=== PATIENT | female | born 2000 | race Caucasian/White ===

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

== ENCOUNTER 2023-06-20 | Outpatient (REF) | payer MEDICAID, SELFPAY ==
[2023-06-22 14:59] LABS: C. trachomatis RNA TMA NOT DETECTED (NOT DETECTED); Candida glabrata RNA NOT DETECTED (NOT DETECTED); Candida species RNA NOT DETECTED (NOT DETECTED); N. gonorrhoeae RNA TMA NOT DETECTED (NOT DETECTED); Trichomonas vaginalis RNA NOT DETECTED (NOT DETECTED)
== END 2023-06-20 00:01 | disposition home or self-care (01) ==
LOC: HO.HHCLNP
PROVIDERS: Visit Provider Emergency Medicine
DX: N89.8 Other specified noninflammatory disorders of vagina (principal)
CPT/HCPCS: 36415; 81513; 87086; 87147; 87481; 87491; 87591; 87661

== ENCOUNTER 2023-11-12 18:57 | Outpatient (REF) | payer MEDICAID, SELFPAY ==
[2023-11-23 00:48] LABS: C. trachomatis RNA TMA NOT DETECTED (NOT DETECTED); N. gonorrhoeae RNA TMA NOT DETECTED (NOT DETECTED); Trichomonas (NAAT) NOT DETECTED (NOT DETECTED)
== END 2023-11-12 18:58 | disposition home or self-care (01) ==
LOC: HO.HHCLNP 18:57
PROVIDERS: Visit Provider Nurse Practitioner Family
DX: Z12.4 Encounter for screening for malignant neoplasm of cervix (principal)
CPT/HCPCS: 36415; 87491; 87591; 87661; 88142

== ENCOUNTER 2024-12-10 18:37 | Emergency (ER) | payer OTHER, SELFPAY ==
--- NOTE | ~2024-12-10 | US_ITS ---
CLINICAL HISTORY: RLQ pain, ? ov cyst torsion Transabdominal and transvaginal ultrasound of the pelvis with Doppler Comparison: None Findings: Anteverted uterus measures 6.6 cm in length. Endometrial thickness measures 7 mm with trace endometrial fluid, may be physiologic. Right ovary measures 2.7 x 2.5 x 2.3 cm. Left ovary measures 3.1 x 1.8 x 2 cm. Normal color and spectral Doppler analysis of both ovaries. Trace free pelvic fluid in the cul-de-sac, may be physiologic. IMPRESSION: No evidence of ovarian torsion. This document has been electronically signed by: Jonn Mena MD on 12/10/2024 23:16:09
--- NOTE | 2024-12-10 18:40 | ED_ITS ---
HPI - Abdominal Pain General Chief Complaint: Abdominal Pain Stated Complaint: abd cramping Time Seen by Provider: 12/10/24 22:13 History of Present Illness ED Provider: Fernando WAY narrative: The patient is a 24-year-old female who is generally in good health. She says that about 2 weeks ago she started to have lower abdominal crampiness that was quite uncomfortable. She was in the [place] when her symptoms began. She says that she went to an emergency room in the [facility] and was given medications which were not very helpful. She says that she started having her period about 5 days ago, after the onset of the original crampiness. She says that the cramping is is mostly on the right side of her lower abdomen in his worse than typical menstrual cramps. She denies vaginal discharge. She denies fever, sweats, chills. She says that she is on control pills. She says that she has a regular boyfriend and sexual partner. She last had sexual intercourse about 3 weeks ago. No dyspareunia. The patient has had no change in appetite. She has been eating normally or even more than usual. No nausea or vomiting. No change in bowel habits. Related Data Home Medications ?Medication ?Instructions ?Recorded ?Confirmed cetirizine 10 mg tablet (Zyrtec) 10 mg PO DAILY PRN 03/23/21 03/23/21 levonorgestrel-ethinyl estradiol 1 tab PO DAILY 03/23/21 03/23/21 0.1 mg-20 mcg tablet (Vienva) omeprazole 20 mg capsule,delayed 20 mg PO DAILY 03/23/21 03/23/21 release Previous Rx's ?Medication ?Instructions ?Recorded doxycycline monohydrate 100 mg 100 mg PO BID 14 days #28 caps 12/11/24 capsule ibuprofen 400 mg tablet 400 mg PO Q6H PRN pain #14 tabs 12/11/24 metronidazole 500 mg tablet 500 mg PO BID 2 weeks #28 tabs 12/11/24 Allergies Allergy/AdvReac Type Severity Reaction Status Date / Time No Known Allergies Allergy Verified 12/10/24 18:43 Review of Systems Review of Systems Yes all other systems are reviewed and are negative [facility] Family History Family History (Updated 03/23/21 @ 11:07 by Louise Kay) Mother HTN (hypertension) Social History Social History (Updated 03/23/21 @ 12:29 by Maribel Vinson PA-C) Household Members Other:: Lives at home with her family Alcohol intake: never Patient Tobacco Use Status: Never used Tobacco e-Cigarette/Vaping Use: Never Used Current occupation: [employer] Physical Exam ED Vital Signs: Vital Signs - 24 hr 12/10/24 18:41 12/10/24 22:27 12/11/24 01:52 Temperature 98.5 F 98.4 F 98.6 F Pulse Rate 73 81 82 Respiratory Rate 18 16 18 Blood Pressure 125/85 125/81 112/58 L Pulse Oximetry 100 99 98 Oxygen Delivery Method Room Air Room Air 12/11/24 01:52 Temperature 98.6 F Pulse Rate 82 Respiratory Rate 18 Blood Pressure 112/58 L Pulse Oximetry 98 Oxygen Delivery Method BMI result Body Mass Index 20.5 Const Other: The patient is a 24-year-old female who was awake, alert, pleasant, cooperative. She is well-groomed. She says that she is in a lot of discomfort but she looked entirely well and did not seem in obvious apparent discomfort. HENMT Other: Face is symmetrical. Mucous membranes moist. Eyes General: appearance normal, both eyes and all related structures Neck Neck: Yes normal visual inspection and Yes full ROM Resp Effort & Inspection: normal respiratory effort Auscultation: clear to auscultation bilaterally Cardio Rate: regular rate Rhythm: regular rhythm Heart sounds: S1 normal heart sound present and S2 normal heart sound present GI Other: The abdomen is flat and soft. She seemed to have tenderness across the very lower portion of the abdomen near the pelvis, moreso on the right lower abdomen. Other: the patient has normal external vaginal genitalia. With a speculum exam it was apparent there was some blood in the vaginal vault consistent with menses. There was no purulence. The patient had cervical motion tenderness and bilateral adnexal tenderness on bimanual exam. Skin Other: the skin is dry and unremarkable Neuro Other: the patient is awake, alert, pleasant, cooperative. Cranial nerves are grossly intact. She moves her extremities normally. She has a normal gait. Extrem Other: No peripheral edema Course Course Course Narrative: This is a Rapid Medical Exam performed in triage by Daphne Begum PA-C. Full HPI, ROS and PE to be performed by primary ED provider. 24 yo F presenting to the ED c/o lower abd pain/cramping x2 wks, intermittent w/radiation to back/RLE. Currently on menses. denies N/V/D, dysuria/hematuria, vag d/c PE: abdomen soft, +RUQ & RLQ/suprapubic ttp, no rebound or guarding Plan: labs, UA, Ur preg Medical Decision Making Medical Decision Making MDM Narrative: the patient is a 24-year-old female who presents for evaluation of 2 weeks of pelvic discomfort. She indicates that her discomfort is worse on the right side. She describes her discomfort as persistent crampiness. She has no associated gastrointestinal symptoms of significance. She says that she has had a normal appetite and has been eating a lot. Normal bowel movements. My suspicion therefore for something like appendicitis or other gastrointestinal process would be very low. The patient also denies vaginal discharge. She has been menstruating for about 3 or 4 days but the painful symptoms for which she is here for evaluation preceded the onset of menses by over a week. Clinically the patient does not look significantly ill in any way. I thought that perhaps the patient would have an ovarian cyst problem has a source of her symptoms. However an ultrasound of the pelvis was unremarkable. No findings of ovarian cyst or torsion. Her labs showed a white count of 6.3 with a differential that showed 46% neutrophils, 38% lymphocytes, and 12% monocytes. test is negative. She had some red cells in her urinalysis consistent With menses. LFTs are unremarkable, lipase is unremarkable, metabolic panel is unremarkable. CRP minimally elevated at 0.64. although the patient's history did not seem highly suggestive of PID I felt that given her unremarkable lab work and her negative ultrasound that I should perform a pelvic exam. I did not see an indication for a CT of the abdomen given her absence of any gastrointestinal symptoms and her unremarkable labs. The speculum portion of the pelvic exam may be affected by the presence of menstrual bleeding. However the bimanual exam revealed significant apparent tenderness with cervical motion and both adnexa ease. Based on this degree of tenderness I felt the patient should be treated for PID. The patient was therefore given IM ceftriaxone and prescriptions for 2 weeks of doxycycline and metronidazole. She should follow up with her PCP. Lab Data 12/10/24 19:04 12/10/24 19:04 Labs: Lab Results 12/10/24 Range/Units 19:04 WBC 6.3 (4.8-10.8) X10*3/uL RBC 3.83 L (4.20-5.50) X10*6/uL Hgb 11.1 L (12.0-16.0) g/dl Hct 32.6 L (37.0-47.0) % MCV 85.1 (80.0-98.0) fL MCH 29.0 (27.0-33.0) pg MCHC 34.0 (31.0-35.0) g/dl RDW 13.3 (11.0-16.0) % Plt Count 335 (160-400) X10*3/uL MPV 9.0 L (9.4-12.3) fL Immature Gran % (Auto) 0.2 (0.0-0.4) % Neut % (Auto) 46.6 (45-73) % Lymph % (Auto) 38.3 (20-40) % Grant % (Auto) 12.3 H (2-11) % Eos % (Auto) 2.1 (0-4) % Baso % (Auto) 0.5 (0-2) % Lymph # (Auto) 2.4 (1.2-4.9) X10*3/uL Grant # (Auto) 0.8 (0.1-1.2) X10*3/uL Eos # (Auto) 0.1 (0.0-0.4) X10*3/uL Baso # (Auto) 0.0 (0.0-0.2) X10*3/uL Abs Immat Gran (auto) 0.01 (0.00-0.03) X10*3/uL Absolute Neuts (auto) 2.9 (2.0-8.3) x10*3/uL Absolute Nucleated RBC 0.000 (0.0-0.012) X10*3/uL Nucleated RBC % (auto) 0.0 (0.0-0.2) /100WBC Smear Tech's Comments VERIFIED Sodium 138 (135-145) mmol/L Potassium 3.6 (3.3-5.1) mmol/L Chloride 106 (96-108) mmol/L Carbon Dioxide 25 (22-29) mmol/L Anion Gap 11 L (12-20) BUN 6 L (9-16) mg/dL Creatinine 0.72 (0.5-1.4) mg/dL Estim Creat Clear Calc 108.0 Estimated GFR > 60 Random Glucose 95 (60-115) mg/dL Calcium 9.3 (8.4-10.2) mg/dL Magnesium 2.0 (1.6-2.6) mg/dL Total Bilirubin 0.3 (0.0-1.0) mg/dL Direct Bilirubin 0.1 (0.0-0.5) mg/dL AST 24 (5-31) U/L ALT 18 (0-31) U/L Alkaline Phosphatase 58 (39-117) U/L C-Reactive Protein 0.64 H (< or = 0.50) mg/dL Total Protein 7.6 (6.5-8.0) g/dL Albumin 4.1 (3.5-5.0) g/dL Lipase 24 (8-78) U/L Urine Color Yellow Urine Appearance Clear Urine pH 6.0 (5.0-9.0) Ur Specific Midnight 1.010 (1.005-1.025) Urine Protein Negative (Neg-Trace) mg/dL Urine Glucose (UA) Negative (Negative) mg/dL Urine Ketones Negative (Negative) mg/dL Urine Blood Moderate (2+) H (Negative) Urine Nitrite Negative (Negative) Ur Leukocyte Esterase Negative (Negative) Urine RBC >20 H (0-2) /HPF Urine WBC 0-5 (0-5) /HPF Ur Squamous Epith Cells 0-2 (0-2) /HPF Urine Bacteria None Seen (None Seen) Hyaline Casts 0-2 (0-2) /LPF Urine Test NEGATIVE (NEGATIVE) Medications Administered Discontinued Medications Generic Name Dose Route Start Last Admin Trade Name Freq PRN Reason Stop Dose Admin Acetaminophen 975 mg 12/11/24 00:06 12/11/24 01:42 Acetaminophen 325 Mg Tablet PO 12/11/24 00:07 975 mg ONCE ONE Administration Ceftriaxone Sodium 500 mg 12/11/24 00:45 12/11/24 01:42 Ceftriaxone Sodium 500 Mg Vial IM 12/11/24 00:46 500 mg ONCE ONE Administration Doxycycline Monohydrate 100 mg 12/11/24 00:45 12/11/24 01:42 Doxycycline Monohydrate 100 Mg Capsule PO 12/11/24 00:46 100 mg ONCE ONE Administration Ketorolac Tromethamine 30 mg 12/10/24 23:26 12/10/24 23:54 Ketorolac Tromethamine 30 Mg/Ml Vial IM 12/10/24 23:27 30 mg ONCE ONE Administration Metronidazole 500 mg 12/11/24 00:45 12/11/24 01:42 Metronidazole 500 Mg Tablet PO 12/11/24 00:46 500 mg ONCE ONE Administration Discharge Plan Discharge Clinical Impression: Acute pelvic inflammatory disease Patient Disposition: Home, Self-Care Instructions: Pelvic Inflammatory Disease (ED) Additional Instructions: I think that you might have a condition called pelvic inflammatory disease. You were given an injection of the antibiotic ceftriaxone. You has been started on oral antibiotics, doxycycline and metronidazole. Please take both of these medications 2 times a day for the next 14 days. Please contact your regular doctor's office in the morning for a prompt follow up appointment for ongoing management and re-evaluation of your symptoms. you may use ibuprofen and [id number] acetaminophen as needed for pain. Return to the emergency room if you feel significantly worse. Prescriptions: New doxycycline monohydrate 100 mg capsule 100 mg PO BID 14 Days Qty: 28 0RF metronidazole 500 mg tablet 500 mg PO BID 14 Days Qty: 28 0RF ibuprofen 400 mg tablet 400 mg PO Q6H PRN (Reason: pain) Qty: 14 0RF No Action omeprazole 20 mg capsule,delayed release(DR/EC) 20 mg PO DAILY cetirizine [Zyrtec] 10 mg tablet 10 mg PO DAILY PRN levonorgestrel-ethinyl estrad [Vienva] 0.1-20 mg-mcg tablet 1 tab PO DAILY Referrals: [facility] [Provider Group] ( Possible PID) Interventions: ED Discharge Assessment Last Done: 12/11/24 01:52 Discharge Date/Time: 12/11/24 01:53 Print Language: Turkmen
[2024-12-10 18:41] VITALS: BP 125/85; PULSE 73; RESP 18; TEMP 36.9; O2SAT 100; BMI 20.5
[2024-12-10 19:09] LABS: Basophils Percent Auto 0.5 % (0-2); Eosinophils Absolute Auto 0.1 X10*3/uL (0.0-0.4); Eosinophils Percent Auto 2.1 % (0-4); Hematocrit 32.6 % (37.0-47.0); Hemoglobin 11.1 g/dl (12.0-16.0); Imm Gran Abs Auto 0.01 X10*3/uL (0.00-0.03); Imm Gran Pct Auto 0.2 % (0.0-0.4); Lymphocytes Absolute Auto 2.4 X10*3/uL (1.2-4.9); Lymphocytes Percent Auto 38.3 % (20-40); MANUAL DIFF FLAG SCAN; Mean Corpuscular Volume 85.1 fL (80.0-98.0); Monocytes Absolute Auto 0.8 X10*3/uL (0.1-1.2); Monocytes Percent Auto 12.3 % (2-11); Neutrophils Absolute Auto 2.9 x10*3/uL (2.0-8.3); Neutrophils Percent Auto 46.6 % (45-73); Platelet Count 335 X10*3/uL (160-400); Red Blood Count 3.83 X10*6/uL (4.20-5.50); Red Cell Distribution Width 13.3 % (11.0-16.0); SCAN SMEAR FLAG 1; White Blood Count 6.3 X10*3/uL (4.8-10.8)
[2024-12-10 19:13] LABS: UPreg QC Valid YES; Urine Pregnancy NEGATIVE (NEGATIVE)
[2024-12-10 19:21] LABS: Appearance Urine Clear; Color Urine Yellow; Glucose Urine UA Negative (Negative); Leukocyte Esterase Urine Negative (Negative); Nitrite Urine Negative (Negative); UMIC TRIGGER UACC YES; Urine Blood Moderate (2+) (Negative); Urine Ketones Negative (Negative); Urine Protein Negative (Neg-Trace)
[2024-12-10 19:26] LABS: Bacteria Urine None Seen (None Seen); Hyaline Casts Urine 0-2 /LPF (0-2); RBC Urine >20 /HPF (0-2); Squamous Epithelial Cell Urine 0-2 /HPF (0-2); WBC Urine 0-5 /HPF (0-5)
[2024-12-10 19:27] LABS: Alanine Aminotransferase 18 U/L (0-31); Albumin Level 4.1 g/dL (3.5-5.0); Alkaline Phosphatase 58 U/L (39-117); Anion Gap 11 (12-20); Aspartate Amino Transferase 24 U/L (5-31); Bilirubin Direct 0.1 mg/dL (0.0-0.5); Bilirubin Total 0.3 mg/dL (0.0-1.0); Blood Urea Nitrogen 6 mg/dL (9-16); Calcium 9.3 mg/dL (8.4-10.2); Carbon Dioxide 25 mmol/L (22-29); Chloride 106 mmol/L (96-108); Estimated Glomerular Filt Rate > 60; Glucose Random 95 mg/dL (60-115); Lipase 24 U/L (8-78); Potassium 3.6 mmol/L (3.3-5.1); SLIDE REVIEW VERIFIED; Sodium 138 mmol/L (135-145); Total Protein 7.6 g/dL (6.5-8.0)
[2024-12-10 22:27] VITALS: BP 125/81; PULSE 81; RESP 16; TEMP 36.9; O2SAT 99
[2024-12-10 22:39] LABS: C Reactive Protein 0.64 mg/dL (< or = 0.50)
[2024-12-10] MEDS: Ketorolac Tromethamine 30 MG/ML VIAL IM (23:54)
[2024-12-11] MEDS: metroNIDAZOLE 500 MG TABLET PO (01:42)
[2024-12-11] MEDS: Acetaminophen 325 MG TABLET 975 MG PO (01:42)
[2024-12-11] MEDS: Doxycycline Monohydrate 100 MG CAPSULE PO (01:42)
[2024-12-11] MEDS: cefTRIAXone sodium 500 MG VIAL IM (01:42)
[2024-12-11 01:52] VITALS: BP 112/58; PULSE 82; RESP 18; TEMP 37; O2SAT 98
[2024-12-11 05:23] LABS: CT PCR NOT DETECTED (Not Detect.); NG PCR NOT DETECTED (Not Detect.)
[2024-12-11 10:27] LABS: Bacterial Vaginosis PCR NEGATIVE (Negative); Candida Group PCR NOT DETECTED (Not Detect); Candida glab krusei PCR NOT DETECTED (Not Detect); Trichomonas vaginalis PCR NOT DETECTED (Not Detect)
== END 2024-12-11 01:53 | disposition home or self-care (01) ==
PROVIDERS: Physician Assistant; Emergency Provider Emergency Medicine
DX: N73.0 Acute parametritis and pelvic cellulitis (principal); R25.2 Cramp and spasm; R10.2 Pelvic and perineal pain; M54.50 Low back pain, unspecified; Z79.899 Other long term (current) drug therapy
CPT/HCPCS: 36415; 76830; 76856; 80048; 80076; 81001; 81025; 81515; 83690; 83735; 85025; 86140; 87491; 87591; 93975; 96372; 99284; J0696; J1885

== ENCOUNTER → 2024-12-10 22:22 | Outpatient (BNV) | payer OTHER, SELFPAY | PROVIDERS: Emergency Provider Emergency Medicine; Visit Provider Radiology Diagnostic Radiology | DX: R10.31 Right lower quadrant pain (principal) | CPT/HCPCS: 76830; 76856; 93975 ==

== ENCOUNTER 2024-12-30 16:09 | Outpatient (REF) | payer OTHER, SELFPAY ==
--- OUTSIDE RECORDS SUMMARY | 2024-12-30 16:11 | XMS_ITS | Clinical Summary ---
Author Organization [facility] Address [id number] [place] [id number] Care Team Providers Care Weigher Operator Name Role Phone Unavailable Primary Care Provider Unavailabl e Social History Tobacco Use Types Packs/Day Years Used Date Smoking Tobacco: Never Assessed Comments Unknown Sex and Gender Information Value Date Recorded Sex Assigned at Not on file Legal Sex Female 9:01 AM EST Gender Identity Not on file Sexual Orientation Not on file Plan of Treatment Health Maintenance Due Date Last Done Comments Gonorrhea/Chlamydia Screening 2002 HPV Vaccines (1 - 3-dose series) 2017 Meningococcal B Vaccine (1 o f 2 - Standard) 2018 DTaP,Tdap,and Td Vaccines (1 - Tdap) 2021 Hepatitis B Vaccines (1 of 3 - 19+ 3-dose series) 2021 Cervical Cancer Screening: P ap Smear 2023 COVID-19 Vaccine ( - 2023-2 5 season) 2024 Influenza Vaccine (Season Ended) 2025 HIB Vaccines Aged Out No longer eligi ble based on patient's age to complete this topic Hepatitis A Vaccines Aged Out No long er eligible based on patient's age to complete this topic IPV Vaccines Aged Out No longer eligi ble based on patient's age to complete this topic MMR Vaccines Aged Out No longer eligi ble based on patient's age to complete this topic Meningococcal ACWY Vaccine Aged Out N o longer eligible based on patient's age to complete this topic Pneumococcal Vaccine: Pediat rics (0 to 5 Years) and At-Risk Patients (6 to 64 Years) Aged Out No longer eligible b ased on patient's age to complete this topic RSV Immunization Patients Un brijesh 20 months Aged Out No longer eligible b ased on patient's age to complete this topic Varicella Vaccines Aged Out No longer eligible based on patient's age to complete this topic
== END 2024-12-30 16:10 | disposition home or self-care (01) ==
LOC: HO.HHCLNP 16:09
PROVIDERS: Visit Provider Advanced Practice Midwife
DX: R87.610 Atypical squamous cells of undetermined significance on cytologic smear of cervix (ASC-US) (principal)
CPT/HCPCS: 88175

== ENCOUNTER 2025-03-09 16:48 | Outpatient (REF) | payer OTHER, SELFPAY ==
--- OUTSIDE RECORDS SUMMARY | 2025-03-09 16:50 | XMS_ITS | Clinical Summary ---
Author Organization [facility] it Address [id number] [place] [id number] Care Team Providers Care Steel Turner Name Role Phone Unavailable Primary Care Provider [...] Screening: P ap Smear 2023 COVID-19 Vaccine (1 - 2023-2 5 season) 2024 Depression Screening 08/06/2024 Influenza Vaccine (#1) 2025 HIB Vaccines Aged Out No longer [...] 5 Years) and At-Risk Patients (6 to 49 Years) Aged Out No longer eligible b ased on patient's age to complete this topic RSV Immunization Patients Un brijesh 20 months Aged Out No longer eligible b ased on patient's age to complete this topic Varicella Vaccines Aged Out No longer eligible based on patient's age to complete this topic
--- OUTSIDE RECORDS SUMMARY | 2025-03-09 16:50 | XMS_ITS | Clinical Summary ---
Author Organization [employer] Address [address] [place] [address] Care Team Providers Care [employer] Libr[employer] Name Role Phone Nichelle Anderson NP Primary Care Provider [phone] Allergies No known active allergies Medications levonorgestrel -ethinyl estradiol (Levora 0.15/30, 28,) 0.15-30 MG-MCG tablet Take 1 tablet by mouth Once per day. 90 tablet 1 5 026 Active levonorgestrel -ethinyl estradiol (Levora 0.15/30, 28,) 0.15-30 MG-MCG tablet Take 1 tablet by mouth Once per day. 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 Called [facility] eye care, they did not advise emergency but gave patient a visit 12/06/2022 0900. Patient excepted visit. Vitamin D deficiency 11/30/2022 Kidney stone 11/30/2022 Irregular periods 10/08/2018 Encounters Date Type Department Care Team Description 03/09/2025 11:30 AM EDT Office Visit [facility] MEDICINE [address] [place] [address] Boone Bhandari CNM Surveillance of previously prescribed contraceptive pill (Primary Dx); Screening examination for venereal disease 03/09/2025 Travel 03/06/2025 Telephone [facility] [address] [place] [address] Hoda Jensen [place] 03/06/2025 Telephone [facility] [address] [place] [address] Boone Bhandari CNM Insurance 02/11/2025 10:30 AM EDT Office Visit [facility] OPTOMETRY [address] [place] [address] Isaak, Karina, OD White without pressure of peripheral retina of right eye (Primary Dx); Migraine without aura and without status migrainosus, not intractable; Myopia of both eyes 02/11/2025 Travel 01/06/2025 Results Follow-Up [address] [address] Boone Bhandari CNM Pap Smear 12/30/2024 10:00 AM EDT Office Visit [address] [address] Boone Bhandari CNM PID (pelvic inflammatory disease) (Primary Dx); Atypical squamous cells of undetermined significance (ASCUS) on Papanicolaou smear of cervix; Irregular periods 12/30/[address] [address] Boone Bhandari CNM Insurance 12/30/2024 Travel 12/26/[address] [address] Nichelle Anderson NP Chart Prep 12/25/2024 Travel 12/11/[address] [address] Nichelle Anderson NP ER Follow-up; Nurse Triage 12/11/2024 Telephone [facility] [address] [place] [address] Breann Vick RN Error (VOID this visit) 12/10/2024 6:20 PM EDT Office Visit [facility] [address] [place] [address] Name, MD Ant Abdominal pain in female patient (Primary Dx) 12/10/2024 Orders Only GENERIC EXTERNAL DATA DEPARTMENT Provider, Generic External Data from Last 3 Months Immunizations Immunization Administration Dates Next Due DTaP 05/18/2006, 3,2002,06/24,2002 HPV, Quadrivalent 12/01/2014,07/06/2014,06/01/20 14 Hep A, ped/adol, 2 dose 10/25/2015,10/21/2014 Hep B, Adolescent or Pediatric 2002,2001,2002 Hib ([facility]) 05/26/2003, 3,2002,06/24 INFLUENZA INJECTABLE QUADRIV ALANT CCIIV4 MDCK Multi-dose vial 07/04/2022 IPV 05/18/2006, 3,2002,04/06 Influenza Injectable Quadriv alant Preservative Free IIV4 MDCK 01/12/2022 Influenza injectable quadriv alent IIV4 with preservative 10/25/2015 Influenza injectable quadriv alent preservative free 05/09/2023,10/08/2018 Influenza live intranasal qu adrivalent LIAV4 06/01/2014 Influenza, IIV3, injectable 06/27/2010,1 ,07/05/2007,05/18 Influenza, Injectable, MDCK, preservative free 05/19/2024 MMR 05/18/2006,03/24/2003 MMRV 05/18/2006 Meningococcal MCV4P ACYW-135 10/08/2018,06/01/20 14 Pneumococcal Conjugate PCV 7 05/26/2003, 2002,2002,04/16 Tdap 06/01/2014 Varicella 03/24/2003 Family History Medical History Relation Name Comments Diabetes Other Hypertension Other Bipolar disorder Neg Hx Depression Neg Hx Relation Name Status Comments Other Social History Tobacco Use Types Packs/Day Years Used Date Smoking Tobacco: Never Smokeless Tobacco: Never Tobacco Cessation:Counseling Given: Not Answered Depression Answer Date Recorded Patient Health Questionnaire-9 Score 0 03/09/2025 Patient Health Questionnaire-9 Score 0 03/09/2025 Last PHQ-9: Questionnaire Data Not on file 0 03/09/2025 Housing Stability Answer Date Recorded What is your housing situation today? I have zaria major 03/09/[address] you li ve. Do you have problems with any of the following? None of the above 03/09/2025 Food Insecurity Answer Date Recorded Within the past 12 months, y ou worried that your food would run out before you got money to buy more: Never True 03/09/2025 Within the past 12 months,th e food you bought just didn't last and you didn't have enough money to get more: Never True 11/2024 Utilities Answer Date Recorded In the past 12 months, has t he electric, gas, oil or water company threatened to shut off services in your home? No 03/09/2025 Depression Answer Date Recorded Patient Health Questionnaire-2 Score 0 03/09/2025 Internet Access Answer Date Recorded Internet Access Q1 Yes 03/09/2025 Internet Access Q2 Not on file 03/09/2025 Comments No Intention Date Recorded No desire to become (finding) 0 03/09/2025 Sex and Gender Information Value Date Recorded Sex Assigned at Female 06/05/2022 10:17 AM EDT Legal Sex Female 10:17 AM EDT Gender Identity Female 06/05/2022 10:17 AM EDT Sexual Orientation Straight 06/05/2022 10 :17 AM EDT Last Filed Vital Signs Vital Sign Reading Time Taken Comments Blood Pressure 120/70 03/09/2025 11:48 AM EDT Pulse 82 03/09/2025 11:48 AM EDT Temperature 37.4 C (99.3 F) 03/09/2025 11:48 AM EDT Respiratory Rate 12 03/09/2025 11:48 AM EDT Oxygen Saturation 99% 03/09/2025 11:48 AM EDT Inhaled Oxygen Concentration - - Weight 55.9 kg (123 lb 3.2 oz) 03/09/2025 11:48 AM EDT Height 165.1 cm (5' 5 ) 12/10/2024 6:07 PM EDT Body Mass Index 20.5 12/10/2024 6:07 PM EDT Plan of Treatment Health Maintenance Due Date Last Done Comments SDOH Screening 2002 Meningococcal B Vaccine (1 of 2 - Standard) 2018 COVID-19 Vaccine (3 - season) 2024 01/21/2021, 12/30/2020 DTaP/Tdap/Td Vaccines (7 - Td or Tdap) 06/01/2024 06/01/2014, 05/18/2006, 05/26/2003, Additional history exists HPV/Cotest 11/11/2024 Influenza Vaccine (#1) 2025 , 05/09/2023, 07/04/2022, Additional history exists Disability Screening 12/10/2025 12/10/2024 Chlamydia and Gonorrhea Screening 12/11/2025 12/11/2024, 11/12/2023, 06/20/2023, Additional history exists Pap Smear 12/30/2025 12/30/2024, 03/2024, 11/12/2023 Alcohol/Substance Use Screening 03/09/2026 03/09/2025 Depression Screening 03/09/2026 03/09/2025, 03/09/20 Family Planning (PISQ) 03/09/2026 03/09/2025 Tobacco Screening 03/09/2026 03/09/2025 Zoster Vaccines (1 of 2) 02/18/2052 RSV Patients and Patients Aged 60 years or older (1 - 1-dose 75+ series) 2077 Hepatitis B Vaccines Completed 2002, 2002, 2002 HIB Vaccines Completed 05/26/2003, 11/05, 2002, Additional history exists Pneumococcal Vaccine: Pediatrics (0 to 5 Years) and At-Risk Patients (6 to 49) Years Aged Out 05/26/2003, 2002, 2002, Additional history exists No longer eligible based on patient's age to complete this topic IPV Vaccines Completed 05/18/2006, 11/05, 2002, Additional history exists HPV Vaccines Completed 12/01/2014, 12/0 08/2013, 06/01/2014 Hepatitis A Vaccines Completed 10/25/2015, 10/22/19 15 Meningococcal Vaccine Completed 10/08/2018, 014 HIV Screening Completed 12/14/2020 Hepatitis C Screening Completed 12/14/2020 RSV under 20 months Aged Out No longe r eligible based on patient's age to complete this topic Rotavirus Vaccines Aged Out No longer eligible based on patient's age to complete this topic Procedures Procedure Name Priority Date/Time Associated Diagnosis Comments PAP SMEAR Routine 12/30/2024 10:58 AM EDT Atypical squamous cells of undetermined significance (ASCUS) on Papanicolaou smear of cervix BACTERIAL VAGINOSIS PANEL Routine 12/11/2024 12:45 AM EDT CHLAMYDIA/N. GONORRHOEAE RNA, TMA, UROGENITAL Routine 12/11/2024 12:45 AM EDT WET PREP, GENITAL Routine 12/11/2024 12: 45 AM EDT US PELVIS TRANSVAGINAL Routine 12/10/2024 11:16 PM EDT US PELVIC OVARIAN DOPPLER Routine 12/10/2024 11:16 PM EDT C-REACTIVE PROTEIN Routine 12/10/2024 7: 04 PM EDT URINALYSIS, COMPLETE, WITH REFLEX TO CULTURE Routine 12/10/2024 7:04 PM EDT LIPASE Routine 12/10/2024 7:04 PM EDT MAGNESIUM Routine 12/10/2024 7:04 PM EDT BASIC METABOLIC PANEL Routine 12/10/2024 7:04 PM EDT HEPATIC FUNCTION PANEL Routine 12/10/2024 7:04 PM EDT SLIDE REVIEW Routine 12/10/2024 7:04 PM EDT CBC WITH AUTO DIFFERENTIAL Routine 12/10/2024 7:04 PM EDT URINALYSIS WITH REFLEX MICROSCOPIC Routine 12/10/2024 7:04 PM EDT HCG, QL, URINE Routine 12/10/2024 7:04 PM EDT POCT , URINE Routine 12/10/2024 6:26 PM EDT Abdominal pain in female patient POCT URINALYSIS DIPSTICK Routine 12/10/2024 6:25 PM EDT Abdominal pain in female patient ZZZ HISTORICAL HEPATITIS C AB W/REFL TO HCV RNA, QN, PCR Routine 12/14/2020 2:28 PM EDT HIV 1/2 ANTIGEN/ANTIBODY, FOURTH GENERATION W/RFL Routine 12/14/2020 2:28 PM EDT from Last 3 Months or Most Recently Relevant to Health Maintenance Results * Pap Smear (12/30/2024 10:58 AM EDT) Swab Cervix uteri structure / Unknown 12/30/2024 10:58 AM EDT 12/31/2024 9:00 AM EDT [facility] - 01/06/2025 3:13 PM EDT ----- ------- Name: Dahiana Alvarado Age/Sex: 24/F : 2000 Unit#: [id number] Attend Dr: BOONE BHANDARI CNM Re12/30/[address] [facility] REF Location: [facility] Disch: ----- ------- SPEC : [id number] RECD: 12/31/24-899 STATUS: MARTINEZ PARRY NUM: [id number] OTF: 12/30/24-[address]: BOONE BHANDARI CNM ENTERED: 12/31/24 SP TYPE: Pap Smr OTHR DR: ORDERED: Pap Smear, PAP path review Interpretation Satisfactory for evaluation. Negative for intraepithelial lesion or malignancy. Reactive cellular changes. Clinical Information LMP: Unknown date Previous PAP test: 11/2023, ASCUS Material Received ThinPrep-Cervical PAP Disclaimer As of May 28, 2024, the technical services to include automated prescreening performed by the ThinPrep Imaging System, PAP screening and HPV testing will be performed at [facility] (CLIA #[id number]), [address] [place] [address]. Testing for HPV was performed using the Yasir TOMER 6800 system. The presence of HPV in the female genital tract is associated with a number of diseases, including cervical carcinoma. The HPV DNA high risk pool tests for HPV 31, 33, 35, 39, 45, 51, 52, 56, 58, 59, 66 and 68. The testing for HPV 16 and 18 genotypes has also been performed. A positive result indicates detection of nucleic acid sequences from one or more subtypes, whereas a negative result indicates such sequences were not detected. All professional services are performed by [facility] ([address] [place] [id number]; ; CLIA #[id number]). The PAP Test is a screening procedure with the inherent possibility of both false negative and false positive results. Results should be interpreted in the context of historic and current clinical findings. Reliability of the PAP Test is enhanced by performing the test on a regular repetitive basis. ----- ------- Signed (signature on file) Ying Jay MD 01/06/25 1513 ----- ------- END OF REPORT us Boone Bhandari [facility] CYTOLOGY ORDERABLES F inal Result [facility] [address] [place] [phone] * Bacterial Vaginosis (12/11/2024 12:45 AM EDT) TRICHOMONAS VAGINALIS DETECTION BY PCR NOT DETECTED Not Detect [facility] BACTERIAL VAGINOSIS DETECTION BY PCR NEGATIVE Negative [facility] Comment:The BV organism targ ets of the Xpert Xpress MVP test can becommensal in women; Xpert Xpress MVP positive results forbacterial vaginosis should be considered in conjunction withother clinical and patient information to determine thedisease status. Organisms that are not detected by the XpertXpress MVP test have also been reported to be associatedwith BV and aerobic vaginitis.The Xpert Xpress MVP test performance has not been evaluatedin patients under the age of 14. HOLLEY GROUP DETECTION BY PCR NOT DETECTED Not Detect [facility] Holley glab krusei PCR NOT DETECTED Not Detect [facility] 12/11/2024 12:4 5 AM EDT 12/11/2024 12:48 AM EDT us Generic External Data Provider LAB MICROBIOLOGY - GENERAL ORDERABLES Final Result [facility] [address] [place] [phone] [phone] * Chlamydia/N. Gonorrhoeae RNA, TMA, Urogenitial (12/11/2024 12:45 AM EDT) CT PCR NOT DETECTED Not Detect. [facility] Comment:A not detected test result does not exclude the possibilityof infection because test results can be affected byimproper specimen collection, concurrent antibiotic therapy,or the number of organisms in the specimen which may bebelow the sensitivity of the test. As with many diagnostictests, results from the Xpert CT/NG assay should beinterpreted in conjunction with other laboratory andclinical data available to the clinician.Xpert CT/NG performance has not been evaluated in patientsless than 14 years of age. The assay should not be used forthe evaluationof suspected sexual abuse or for other medico-legalindications. Additional testing is recommended in anycircumstance when false positive or false negative resultscould lead to adverse medical, social or psychologicalconsequences. NG PCR NOT DETECTED Not Detect. [facility] Comment:A not detected test result does not exclude the possibilityof infection because test results can be affected byimproper specimen collection, concurrent antibiotic therapy,or the number of organisms in the specimen which may bebelow the sensitivity of the test. As with many diagnostictests, results from the Xpert CT/NG assay should beinterpreted in conjunction with other laboratory andclinical data available to the clinician.Xpert CT/NG performance has not been evaluated in patientsless than 14 years of age. The assay should not be used forthe evaluationof suspected sexual abuse or for other medico-legalindications. Additional testing is recommended in anycircumstance when false positive or false negative resultscould lead to adverse medical, social or psychologicalconsequences. 12/11/2024 12:4 5 AM EDT 12/11/2024 12:48 AM EDT Narrative [facility] - 12/11/2024 5:24 AM EDT Vaginal us Generic External Data Provider LAB MICROBIOLOGY - GENERAL ORDERABLES Final Result Performing Organization Address City/[facility] Co de Phone Number [facility] [address] [place] [phone] * Wet prep, genital (12/11/2024 12:45 AM EDT) Vaginal Fluid Vaginal structure / Unknown 12/11/2024 12:45 AM EDT 12/11/2024 12:48 AM EDT Comment:Vaginal Narrative [facility] - 12/11/2024 12:54 AM EDT Trichomonas Prep Direct Microscopic Exam Trichomonas Prep No trichomonads or yeast seen Specimen Source: Vaginal us Generic External Data Provider LAB MICROBIOLOGY - GENERAL ORDERABLES Final Result Performing Organization Address [facility] de Phone Number [facility] [address] [place] [phone] * US PELVIC OVARIAN DOPPLER (12/10/2024 11:16 PM EDT) Anatomical Region Laterality Modality Abdomen Ultrasound 12/10/2024 11:1 6 PM EDT Narrative 12/10/2024 11:17 PM EDT [address] [address] Ultrasound Report Signed Patient: Dahiana Alvarado MR#: [id number] 440 : 2000 Acct:[id number] Age/Sex: 24 / F ADM Date: 12/10/24 Loc: .ED Attending Dr: Ordering Physician: Jigar King MD Date of Service: 12/10/24 Procedure(s): US pelvic ovarian doppler Accession Number(s): [id number] cc: [facility]; Jigar King MD CLINICAL HISTORY: RLQ pain, ? ov cyst torsion Transabdominal and transvaginal ultrasound of the pelvis with Doppler Comparison: None Findings: Anteverted uterus measures 6.6 cm in length. Endometrial thickness measures 7 mm with trace endometrial fluid, may be physiologic. Right ovary measures 2.7 x 2.5 x 2.3 cm. Left ovary measures 3.1 x 1.8 x 2 cm. Normal color and spectral Doppler analysis of both ovaries. Trace free pelvic fluid in the cul-de-sac, may be physiologic. IMPRESSION: No evidence of ovarian torsion. This document has been electronically signed by: Jonn Mena MD on 12/10/2024 23:16:09 Dictated By: Jonn Mena MD Signed By: <Electronically signed by Jonn Mena MD in OV> 12/10/242316 DD/ 15 TD/TT: 12/10/242315 Sports Journalist: Procedure Note Donotuseinterpreter, Image - 12/10/2024 [place] [address] Ultrasound Report Signed Patient: Dahiana AlvaradoMR#: [id number] 440 : 2000Acct:[id number] Age/Sex: 24 / FADM Date: 12/10/24 Loc: .ED Attending Dr: Ordering Physician: Jigar King MD Date of Service: 12/10/24 Procedure(s): US pelvic ovarian doppler Accession Number(s): [id number] cc: [facility]; Jigar King MD CLINICAL HISTORY: RLQ pain, ? ov cyst torsion Transabdominal and transvaginal ultrasound of the pelvis with Doppler Comparison: None Findings: Anteverted uterus measures 6.6 cm in length. Endometrial thickness measures 7 mm with trace endometrial fluid, may be physiologic. Right ovary measures 2.7 x 2.5 x 2.3 cm. Left ovary measures 3.1 x 1.8 x 2 cm. Normal color and spectral Doppler analysis of both ovaries. Trace free pelvic fluid in the cul-de-sac, may be physiologic. IMPRESSION: No evidence of ovarian torsion. This document has been electronically signed by: Jonn Mena MD on 12/10/2024 23:16:09 Dictated By: Jonn Mena MD Signed By: <Electronically signed by Jonn Mena MD in OV> 12/10/247 DD/ 15 TD/TT: 12/10/242315 Sports Journalist: us [facility] External Provider IMG US PROCEDURES Edited Result - Final * US Pelvis Transvaginal (12/10/2024 11:16 PM EDT) Anatomical Region Laterality Modality Pelvis Ultrasound 12/10/2024 11:1 6 PM EDT Narrative 12/11/2024 8:52 AM EDT [place] [address] Ultrasound Report Signed Patient: Dahiana Alvarado MR#: [id number] 440 : 2000 Acct:[id number] Age/Sex: 24 / F ADM Date: 12/10/24 Loc: .ED Attending Dr: Ordering Physician: Jigar King MD Date of Service: 12/10/24 Procedure(s): US pelvic and transvaginal Accession Number(s): [id number] cc: [facility]; Jigar King MD CLINICAL HISTORY: RLQ pain, ? ov cyst torsion Transabdominal and transvaginal ultrasound of the pelvis with Doppler Comparison: None Findings: Anteverted uterus measures 6.6 cm in length. Endometrial thickness measures 7 mm with trace endometrial fluid, may be physiologic. Right ovary measures 2.7 x 2.5 x 2.3 cm. Left ovary measures 3.1 x 1.8 x 2 cm. Normal color and spectral Doppler analysis of both ovaries. Trace free pelvic fluid in the cul-de-sac, may be physiologic. IMPRESSION: No evidence of ovarian torsion. This document has been electronically signed by: Jonn Mena MD on 12/10/2024 23:16:09 Dictated By: Jonn Mena MD Signed By: <Electronically signed by Jonn Mena MD in OV> 12/11/24 0852 DD/ 15 TD/TT: 12/10/242315 Sports Journalist: Procedure Note Donotuseinterpreter, Image - 12/11/[address] [address] Ultrasound Report Signed Patient: Yenni Alvarado#: [id number] 440 : 2000Acct:[id number] Age/Sex: 24 / FADM Date: 12/10/24 Loc: HO.ED Attending Dr: Ordering Physician: Jigar King MD Date of Service: 12/10/24 Procedure(s): US pelvic and transvaginal Accession Number(s): [id number] cc: [facility]; Jigar King MD CLINICAL HISTORY: RLQ pain, ? ov cyst torsion Transabdominal and transvaginal ultrasound of the pelvis with Doppler Comparison: None Findings: Anteverted uterus measures 6.6 cm in length. Endometrial thickness measures 7 mm with trace endometrial fluid, may be physiologic. Right ovary measures 2.7 x 2.5 x 2.3 cm. Left ovary measures 3.1 x 1.8 x 2 cm. Normal color and spectral Doppler analysis of both ovaries. Trace free pelvic fluid in the cul-de-sac, may be physiologic. IMPRESSION: No evidence of ovarian torsion. This document has been electronically signed by: Jonn Mena MD on 12/10/2024 23:16:09 Dictated By: Jonn Mena MD Signed By: <Electronically signed by Jonn Mena MD in OV> 12/11/24 0852 DD/ 15 TD/TT: 12/10/242315 Sports Journalist: us [facility] External Provider IMG US PROCEDURES Edited Result - Final * Slide Review (12/10/2024 7:04 PM EDT) Slide Review VERIFIED [facility] 12/10/2024 7:04 PM EDT 12/10/2024 7:06 PM EDT us Generic External Data Provider LAB BLOOD ORDERAB LES Final Result Performing Organization Address City/[facility]/ZIP Co de Phone Number [facility] [address] [place], [place] [phone] * (ABNORMAL) Urinalysis, Complete, with Reflex to Culture (12/10/2024 7:04 PM EDT) Color Urine Yellow [facility] Appearance Urine Clear [facility] PH 6.0 5.0 - 9.0 [facility] Glucose Urine UA Negative Negative mg/dL [facility] Urine Blood Moderate (2+)(A) Negative [facility] Specific [place] - Urine 1.010 1.005 - 1.025 [facility] Urine Protein Negative Neg-Trace mg/dL [facility] Urine Ketones Negative Negative mg/dL [facility] Nitrite Urine Negative Negative [facility] Leukocyte Esterase Urine Negative Negative [facility] RBC Urine >20(A) 0 - 2 /HPF [facility] Urine WBC 0-5 0 - 5 /HPF [facility] Urine Squamous Epithelial Cell 0-2 0 - 2 /HPF [facility] Urine Bacteria None Seen None Seen [facility] Hyaline Casts, Urine 0-2 0 - 2 /LPF [facility] 12/10/2024 7:04 PM EDT 12/10/2024 7:06 PM EDT Narrative [facility] - 12/10/2024 7:30 PM EDT [id number], Clean Catch Generic External Data Provider LAB URINE ORDERAB LES Final Result Performing Organization Address City/[facility]/ZIP Co de Phone Number [facility] [address], [place] [phone] * (ABNORMAL) CBC auto differential (12/10/2024 7:04 PM EDT) White Blood Count 6.3 4.8 - 10.8 X10*3/uL [facility] Red Blood Count 3.83(L) 4.20 - 5.50 X10*6/uL [facility] Hemoglobin 11.1(L) 12.0 - 16.0 g/dl [facility] Hematocrit 32.6(L) 37.0 - 47.0 % [facility] Mean Corpuscular Volume 85.1 80.0 - 98.0 fL [facility] Mean Corpuscular Hemoglobin 29.0 27.0 - 33.0 pg [facility] Mean Corpuscular HGB Conc 34.0 31.0 - 35.0 g/dl [facility] Red Cell Distribution Width 13.3 11.0 - 16.0 % [facility] Platelet Count 335 160 - 400 X10*3/uL [facility] Mean Platelet Volume 9.0(L) 9.4 - 12.3 fL [facility] Neutrophils Percent Auto 46.6 45 - 73 % [facility] Imm Gran Pct Auto 0.2 0.0 - 0.4 % [facility] Lymphocytes Percent Auto 38.3 20 - 40 % [facility] Monocytes Percent Auto 12.3(H) 2 - 11 % [facility] Eosinophils Percent Auto 2.1 0 - 4 % [facility] Basophils Percent Auto 0.5 0 - 2 % [facility] NRBC Pct Auto 0.0 0.0 - 0.2 /100WBC [facility] Neutrophils Absolute Auto 2.9 2.0 - 8.3 x10*3/uL [facility] Imm Gran Abs Auto 0.01 0.00 - 0.03 X10*3/uL [facility] Lymphocytes Absolute Auto 2.4 1.2 - 4.9 X10*3/uL [facility] Monocytes Absolute Auto 0.8 0.1 - 1.2 X10*3/uL [facility] Eosinophils Absolute Auto 0.1 0.0 - 0.4 X10*3/uL [facility] Basophils Absolute Auto 0.0 0.0 - 0.2 X10*3/uL [facility] NRBC Abs Auto 0.000 0.0 - 0.012 X10*3/uL [facility] 12/10/2024 7:04 PM EDT 12/10/2024 7:06 PM EDT Generic External Data Provider LAB BLOOD ORDERAB LES Edited Result - Final Performing Organization Address [facility] Co de Phone Number [facility] [address] [place] [address] [phone] * HCG, Qualitative, Urine (12/10/2024 7:04 PM EDT) Urine NEGATIVE NEGATIVE [facility] Comment:This test was develo ped to detect early . Falsenegative results may occur after the 5th - 7th week ofpregnancy when using this test method. If clinicallyindicated, consider a serum hCG. 12/10/2024 7:04 PM EDT 12/10/2024 7:06 PM EDT Generic External Data Provider LAB URINE ORDERAB LES Final Result Performing Organization Address [facility] Co de Phone Number [facility] [address] [place] [phone] * (ABNORMAL) Urinalysis w/reflex microscopic (12/10/2024 7:04 PM EDT) Color Urine Yellow [facility] Appearance Urine Clear [facility] PH 6.0 5.0 - 9.0 [facility] Glucose Urine UA Negative Negative mg/dL [facility] Urine Blood Moderate (2+)(A) Negative [facility] Specific [place] - Urine 1.010 1.005 - 1.025 [facility] Urine Protein Negative Neg-Trace mg/dL [facility] Urine Ketones Negative Negative mg/dL [facility] Nitrite Urine Negative Negative [facility] Leukocyte Esterase Urine Negative Negative [facility] 12/10/2024 7:04 PM EDT 12/10/2024 7:06 PM EDT Narrative [facility] - 12/10/2024 7:21 PM EDT [id number], Clean Catch us Generic External Data Provider LAB URINE ORDERAB LES Final Result Performing Organization Address [facility] de Phone Number [facility] [address] [place] [phone] * (ABNORMAL) C-reactive Protein (12/10/2024 7:04 PM EDT) C Reactive Protein 0.64(H) < or = 0.50 mg/dL [facility] 12/10/2024 7:04 PM EDT 12/10/2024 7:06 PM EDT us Generic External Data Provider LAB BLOOD ORDERAB LES Final Result Performing Organization Address [facility] Phone Number [facility] [address] [place] [address] [phone] * Magnesium (12/10/2024 7:04 PM EDT) Magnesium 2.0 1.6 - 2.6 mg/dL [facility] 12/10/2024 7:04 PM EDT 12/10/2024 7:06 PM EDT us Generic External Data Provider LAB BLOOD ORDERAB LES Final Result Performing Organization Address [facility] Co de Phone Number [facility] [address] [place] [address] [phone] * Lipase (12/10/2024 7:04 PM EDT) Lipase 24 8 - 78 U/L [facility] 12/10/2024 7:04 PM EDT 12/10/2024 7:06 PM EDT us Generic External Data Provider LAB BLOOD ORDERAB LES Final Result Performing Organization Address [facility]/ZIP Co de Phone Number [facility] [address] [place] [phone] * Hepatic Function Panel (12/10/2024 7:04 PM EDT) Pathologist [facility] Bilirubin, Total 0.3 0.0 - 1.0 mg/dL [facility] Bilirubin, Direct 0.1 0.0 - 0.5 mg/dL [facility] Aspartate Amino Transferase 24 5 - 31 U/L [facility] Alanine Aminotransferase 18 0 - 31 U/L [facility] Total Protein 7.6 6.5 - 8.0 g/dL [facility] Albumin Level 4.1 3.5 - 5.0 g/dL [facility] Alkaline Phosphatase 58 39 - 117 U/L [facility] 12/10/2024 7:04 PM EDT 12/10/2024 7:06 PM EDT Generic External Data Provider LAB BLOOD ORDERAB LES Final Result Performing Organization Address [facility] Co de Phone Number [facility] [address] [place] [phone] * (ABNORMAL) Basic Metabolic Panel (12/10/2024 7:04 PM EDT) Pathologist [facility] Sodium 138 135 - 145 mmol/L [facility] Potassium 3.6 3.3 - 5.1 mmol/L [facility] Chloride 106 96 - 108 mmol/L [facility] Carbon Dioxide 25 22 - 29 mmol/L [facility] Anion Gap 11(L) 12 - 20 [facility] Urea Nitrogen (BUN) 6(L) 9 - 16 mg/dL [facility] Creatinine, Serum 0.72 0.5 - 1.4 mg/dL [facility] Creatinine Clr Calc Pharmacy 108.0 [facility] Comment:Provided height and weight: 165.1 cm,55.8 kg.eGFR (calculated from the MDRD study equation) and eCrCl(calculated from the Cockcroft-Gault equation) are based ondifferent parameters and may not yield comparable results.If eCrCl result is absurd, please check patient'sheight/weight. Estimated Glomerular Filt Rate >60 [facility] Comment:Chronic Kidney Disea se: Estimated GFR < 60 mL/min/[id number] Kidney Disease: Estimated GFR < 15 mL/min/1.73m2 Glucose 95 60 - 115 mg/dL [facility] Calcium 9.3 8.4 - 10.2 mg/dL [facility] 12/10/2024 7:04 PM EDT 12/10/2024 7:06 PM EDT Generic External Data Provider LAB BLOOD ORDERAB LES Final Result [facility] [address] [place] [address] [phone] * POCT Urine (12/10/2024 6:26 PM EDT) Preg Test, Ur Negative Negative, Indeterminate, None Detected, Invalid, Specimen unsatisfactory for evaluation, Weakly Positive, 2+ QC Media Lot # [id number] Lot# Expiration Date Urine 12/10/2024 6:26 PM EDT Ant Tatum MD POINT OF CARE TEST ENTER/EDIT OR DERABLES Final Result * (ABNORMAL) POCT Urinalysis (12/10/2024 6:25 PM EDT) Color, UA Red Clarity, UA Turbid Glucose, UA Negative Bilirubin, UA Negative Ketones, UA Negative Spec Grav, UA 1.030 Blood, UA Positive(A) Negative, None Detected Comment:Large pH, UA 5.5 Protein, UA Trace Comment:100mg/dL Urobilinogen, UA 1.0 Leukocytes, UA Negative Negative, Rare, Trace Nitrite, UA Negative Negative, None Detected Appearance, UA Red QC Media Lot # [id number] Lot# Expiration Date Urine 12/10/2024 6:25 PM EDT Ant Tatum MD POINT OF CARE TEST ENTER/EDIT OR DERABLES Final Result * HEPATITIS C AB W/REFL TO HCV RNA, QN, PCR (12/14/2020 2:28 PM EDT) HEPATITIS C ANTIBODY NON-REACT MERY NON-REACT MERY [facility] INDEX 0.01 <1.00 [facility] Comment: HCV antibody was non-reactive. There is no laboratory evidence of HCV infection. In most cases, no further action is required. However, if recent HCV exposure is suspected, a test for HCV RNA (test code 40404) is suggested. For additional information please refer to http://Capriza.eDossea/faq/YAG18x7 (This link is being provided for informational/ educational purposes only.) 12/14/2020 2:2 8 PM EDT Naomie Rawls MD HISTORICAL/NON ORDERABLE LA BS Final Result [facility] [address] * HIV 1/2 ANTIGEN/ANTIBODY,FOURTH GENERATION W/RFL (12/14/2020 2:28 PM EDT) HIV-1/2 ANTIGEN AND ANTIBODIES, 4TH GENERATION W/ REFLEX NON-REACT MERY NON-REACT MERY [facility] Comment: HIV-1 antigen and HIV-1/HIV-2 antibodies were not detected. There is no laboratory evidence of HIV infection. PLEASE NOTE: This information has been disclosed to you from records whose confidentiality may be protected by state law. If your state requires such protection, then the state law prohibits you from making any further disclosure of the information without the specific written consent of the person to whom it pertains, or as otherwise permitted by law. A general authorization for the release of medical or other information is NOT sufficient for this purpose. For additional information please refer to http://Capriza.eDossea/faq/ZDO620 (This link is being provided for informational/ educational purposes only.) The performance of this assay has not been clinically validated in patients less than 2 years old. 12/14/2020 2:28 PM EDT us Naomie Rawls MD LAB BLOOD ORDERABLES Final Result Performing Organization Address City/State/[facility] Co de Phone Number [facility] [address] from Last 3 Months or Most Recently Relevant to Health Maintenance Insurance [facility] 3 Care Teams [employer] Relationship Specialty Start Date End Date Nichelle Anderson NP [address] [place] [phone] PCP - General Family Medicine 02/06/24
[2025-03-10 10:38] LABS: CT PCR Urine NOT DETECTED (Not Detect.); NG PCR Urine NOT DETECTED (Not Detect.)
== END 2025-03-09 16:49 | disposition home or self-care (01) ==
LOC: HO.HHCLNP 16:48
PROVIDERS: Visit Provider Advanced Practice Midwife
DX: Z11.3 Encounter for screening for infections with a predominantly sexual mode of transmission (principal); Z11.8 Encounter for screening for other infectious and parasitic diseases
CPT/HCPCS: 36415; 87491; 87591; 87661